=== PATIENT | male | born 1935 | race American Indian/Alaskan Native ===

== ENCOUNTER 2017-07-17 19:43 | Emergency (ER) | payer MEDICARE, MEDICAID ==
[2017-07-17 19:44] VITALS: BMI 22.3
[2017-07-17 19:55] VITALS: TEMP 97.8
--- NOTE | 2017-07-17 20:18 | C.PDOC ---
History Of Present Illness Patient presents to the ER with daughter for a complaint of vomiting and abdominal pain after eating a cheese and ham sandwich yesterday. Daughter states she has similar symptoms after eating the same meal. Daughter also reports patient has a Hx of a bleeding ulcer with stent placement and glaucoma in the left eye. Denies fever or chills. Time Seen by Provider: 07/17/17 20:17 Chief Complaint (Nursing): GI Problem History Per: Patient History/Exam Limitations: no limitations Onset/Duration Of Symptoms: Days Current Symptoms Are (Timing): Still Present Context: Food Severity: Mild Pain Scale Rating Of: 4 (Discomfort) Location Of Pain/Discomfort: Diffuse Radiation Of Pain To:: None Quality Of Discomfort: Unable To Describe Associated Symptoms: Vomiting. denies: Fever, Chills Exacerbating Factors: None Alleviating Factors: None Recent travel outside of the [place]: No Past Medical History Reviewed: Historical Data, Nursing Documentation, Vital Signs Vital Signs: Last Vital Signs Temp 97.8 F 07/17/17 19:51 Pulse 65 07/17/17 19:51 Resp 17 07/17/17 19:51 BP 182/79 H 07/17/17 19:51 Pulse Ox 94 L 07/17/17 21:08 - Medical History PMH: Alzheimer's Disease, Back Problems, CAD, Cardia Arrhythmia, Dementia, Gastritis, GERD, HTN, Hypercholesterolemia Surgical History: Appendectomy, Coronary Stent, Hernia Repair - [facility] VACCINATION NEC (05/17/14) Family History: States: No Known Family Hx - Social History Hx Tobacco Use: No Hx Alcohol Use: No Hx Substance Use: No - Immunization History Hx Tetanus Toxoid Vaccination: No Hx Influenza Vaccination: No Hx Pneumococcal Vaccination: No Review Of Systems Constitutional: Negative for: Fever, Chills Gastrointestinal: Positive for: Vomiting, Abdominal Pain Physical Exam - Physical Exam Appears: Non-toxic Skin: Warm, Dry Head: Normacephalic Eye(s): 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) Oral Mucosa: Dry Chest: Symmetrical Cardiovascular: Rhythm Regular Respiratory: No Rales, No Rhonchi, No Wheezing Gastrointestinal/Abdominal: Bowel Sounds (Decreased), Soft, Tenderness ( Diffusely), Guarding (Voluntary), No Rebound Neurological/Psych: Oriented x3 ED Course And Treatment - Laboratory Results Result Diagrams: 07/17/17 20:42 07/17/17 20:42 ECG: Interpreted By Me, Viewed By Me ECG Rhythm: Sinus Rhythm (66), Nonspecific Changes O2 Sat by Pulse Oximetry: 94 (Room air) Pulse Ox Interpretation: Normal - Radiology CXR: Interpreted by Me, Viewed By Me CXR Interpretation: No: Infiltrates, Fracture, Pnemothorax Progress Note: Blood work, EKG, CXR, and urinalysis ordered. Zofran, protonix, and IV fluids administered. Reevaluation Time: 23:27 Reassessment Condition: Improved Medical Decision Making Medical Decision Making: Upon provider reevaluation patient is feeling better, is medically stable, and requires no further treatment in the ED at this time. Patient will be discharged home with Rx for miralax and zofran . Counseling was provided and all questions were answered regarding diagnosis and need for follow up with dr ford. There is agreement to discharge plan. Return if symptoms persist or worsen. Disposition Counseled Patient/Family Regarding: Studies Performed, Diagnosis, Need For Followup, Rx Given - Disposition Referrals: Timothy Ford MD [Staff Provider] - Disposition: HOME/ ROUTINE Disposition Time: 20:18 Condition: FAIR Prescriptions: Ondansetron ODT [Zofran ODT] 1 odt PO BID PRN #6 odt PRN Reason: Nausea/Vomiting Polyethylene Glycol 3350 [Miralax] 17 gm PO DAILY #270 ml Instructions: Acute Nausea and Vomiting (ED), Constipation (DC) Forms: [facility] (Polish) - Clinical Impression Clinical Impression: Constipation, Nausea & vomiting, Food poisoning - Scribe Statement The provider has reviewed the documentation as recorded by the Scribcharla Costello All medical record entries made by the Scribe were at my direction and personally dictated by me. I have reviewed the chart and agree that the record accurately reflects my personal performance of the history, physical exam, medical decision making, and the department course for this patient. I have also personally directed, reviewed, and agree with the discharge instructions and disposition.
[2017-07-17] MEDS ORDERED: Sodium Chloride 0.9% 1,000 ML IV ONE (20:32)
[2017-07-17] MEDS ORDERED: Sodium Chloride 0.9% 1,000 ML ONE (20:52)
[2017-07-17 20:54] LABS: BASO % 0.4 % (0.0-2.0); EOS % 0.3 % (0.0-4.0); HEMATOCRIT 37.5 % (35.0-51.0); LYMPH # 0.7 K/uL (1.0-4.3); LYMPH % 10.3 % (20.0-40.0); MEAN CELL VOLUME 98.7 fL (80.0-94.0); MEAN CORPUSCULAR HEMOGLOBIN 32.9 pg (27.0-31.0); MEAN CORPUSCULAR HGB CONC 33.4 g/dL (33.0-37.0); MEAN PLATELET VOLUME 7.7 fL (7.2-11.7); MONO # 0.5 K/uL (0.0-0.8); MONO % 7.5 % (0.0-10.0); NRBC % 0.1 % (0.0-2.0); POTASSIUM 3.7 mmol/L (3.6-5.2); RED CELL DISTRIBUTION WIDTH 12.9 % (11.5-14.5); WHITE BLOOD COUNT 6.9 K/uL (4.8-10.8)
[2017-07-17 20:56] LABS: BILIRUBIN,TOTAL 1.1 mg/dL (0.2-1.3)
[2017-07-17 20:57] LABS: ALB/GLOB RATIO 1.2 (1.0-2.1); CALCIUM 9.1 mg/dl (8.6-10.4); TOTAL PROTEIN 7.6 g/dL (6.3-8.3)
[2017-07-17 21:12] LABS: INR 1.1
[2017-07-17] MEDS ORDERED: Iodixanol 320 MG/ML 100 ML BOTTLE IV ONE (21:29)
[2017-07-17] MEDS ORDERED: Iohexol 300 100 ML IJ ONE (22:00)
[2017-07-17 22:39] LABS: RBC URINE 25 /hpf (0-3); URINE BACTERIA OCC (<OCC); URINE BILIRUBIN NEGATIVE (NEGATIVE); URINE BLOOD 3+ (NEGATIVE); URINE COLOR Yellow (YELLOW); URINE GLUCOSE (UA) NORMAL (Normal); URINE KETONE 1+ mg/dL (NEGATIVE); URINE LEUKOCYTE ESTERASE NEG Leu/uL (Negative); URINE PROTEIN NEGATIVE (NEGATIVE); URINE UROBILINOGEN NORMAL mg/dL (0.2-1.0); WBC URINE 3 /hpf (0-5)
--- NOTE | 2017-07-17 23:18 | CT ---
EXAM: CT Abdomen and Pelvis With Intravenous Contrast CLINICAL HISTORY: 82 years old, male; Pain; Abdominal pain; Generalized; Additional info: Diffuse abd pain, HX of blleding gastric ulcer TECHNIQUE: Axial computed tomography images of the abdomen and pelvis with intravenous contrast. All CT scans at this facility use one or more dose reduction techniques, viz.: automated exposure control; ma/kV adjustment per patient size (including targeted exams where dose is matched to indication; i.e. head); or iterative reconstruction technique. Coronal and sagittal reformatted images were created and reviewed. CONTRAST: 100 mL of omnipaque 300 administered intravenously. COMPARISON: No relevant prior studies available. FINDINGS: Lower thorax: The bilateral lung bases are clear. ABDOMEN: Liver: No acute findings. Multiple avascular foci of decreased attenuation within the liver, statistically representing cysts. Steatosis is also present. Gallbladder and bile ducts: The gallbladder is decompressed. No calcified stones. No significant intra- or extrahepatic biliary ductal dilation. Pancreas: Enhances homogeneously. No ductal dilation. No discrete mass. Spleen: No acute findings. Adrenals: No acute findings. Kidneys and ureters: No acute findings. No hydronephrosis or renal calculi. No discrete solid mass. Multiple areas of decreased attenuation within the bilateral kidneys, statistically representing cysts. PELVIS: Bladder: No acute findings. Reproductive: No acute findings. Appendix: The air filled appendix is of normal caliber (series 3, image 91; series 601, image 47) . ABDOMEN and PELVIS: Stomach and bowel: No obstruction. Mural thickening within the rectosigmoid colon, without surrounding inflammation. Moderate retained fecal enteric contents within the rectum, suggesting constipation. Peritoneum: No significant fluid collection. No free air. Lymph nodes: No pathologically enlarged lymph nodes. Vasculature: Ectasia of the abdominal aorta. Calcified atherosclerotic disease. The portal vein, splenic vein and superior mesenteric veins are patent. Bones: Diffuse bony demineralization, without acute fracture. Significant degenerative disease within the lumbosacral spine, with bridging osteophyte formation, disc space narrowing, endplate changes and vacuum phenomena. IMPRESSION: Findings within the rectum suggesting constipation. Innumerable additional nonacute findings, as detailed above.
[2017-07-17 23:36] VITALS: BP 183/95; PULSE 101; RESP 18; O2SAT 95
--- NOTE | 2017-07-18 08:19 | RAD ---
PROCEDURE: CHEST RADIOGRAPH, 1 VIEW HISTORY: abd pain COMPARISON: Portable chest 12/21/2014. FINDINGS: LUNGS: Clear. PLEURA: No pneumothorax or pleural fluid seen. CARDIOVASCULAR: Normal. OSSEOUS STRUCTURES: No significant abnormalities. VISUALIZED UPPER ABDOMEN: Normal. OTHER FINDINGS: None. IMPRESSION: No interval acute cardiopulmonary disease appreciated.
== END 2017-07-18 00:59 | disposition home or self-care (01) ==
LOC: C.ER 19:43
DX: R11.2 Nausea with vomiting, unspecified (principal); K59.00 Constipation, unspecified; T62.91XA Toxic effect of unspecified noxious substance eaten as food, accidental (unintentional), initial encounter
CPT/HCPCS: 71010; 74177; 80053; 81001; 83690; 85025; 85610; 85730; 86850; 86900; 96374; 96375; 99285; C9113; J2405; J7040; Q9967